=== PATIENT | female | born 1990 | race Caucasian/White ===

== ENCOUNTER 2021-12-16 10:56 | Outpatient (CLI) | payer MEDICAID, SELFPAY | END 2021-12-16 10:57 | disposition home or self-care (01) | LOC: NFLDREF 11:01 | PROVIDERS: Visit Provider Registered Nurse | DX: Z34.90 Encounter for supervision of normal pregnancy, unspecified, unspecified trimester (principal) | CPT/HCPCS: 87086 ==

== ENCOUNTER 2021-12-20 11:51 | Outpatient (CLI) | payer MEDICAID, SELFPAY ==
--- NOTE | 2021-12-20 12:15 | CRLHL7_ITS ---
For Patients: As a result of the Century Cures Act, medical imaging exams and procedure reports are released immediately into your electronic medical record. You may view this report before your referring provider. If you have questions, please contact your health care provider. INDICATION: Evaluate anatomy. COMPARISON: none TECHNIQUE: Real time mena scale imaging of the fetus was performed as well as color Doppler analysis of the umbilical vessels. FINDINGS: Sonographic imaging demonstrates a single living intrauterine gestation. Fetus demonstrates a regular cardiac rate of 154 beats per minute. Fetus has a vertex position. The placenta lies anteriorly without evidence of placenta previa. The edge of the placenta is located 5.9 cm from the internal cervical os. Amniotic fluid volume appears normal. Single deepest vertical pocket: 5.3 cm. The cervix is closed and measures 3.9 cm in length. The composite ultrasound gestational age is calculated at 19 weeks 6 days with an estimated sonographic due date of 05/10/2022. The estimated weight is 320 grams which lies at the 73rd %. The following biometric measurements were obtained: Biparietal diameter: 4.5 cm/19 weeks 4 days 54th% Head circumference: 16.8 cm/19 weeks 3 days 44th% Abdominal circumference: 15.3 cm/20 weeks 3 days 78th% Femur length: 3.0 cm/19 weeks 3 days 40th% The HC/AC ratio measures: 1.10 range (1.08-1.26) On anatomic survey, there is a normal appearance of the cerebral ventricles, cavum septi pellucidi, cisterna magna and cerebellum. The nose, lips, and facial profile appear normal. The cervical, thoracic and lumbar spine are well visualized and appear normal. The heart views are difficult to obtain due to body habitus. The diaphragm and stomach appear normal. The kidneys and bladder also appear normal. There is a normal three-vessel cord and cord insertion site. The four extremities appear normal. IMPRESSION: Incomplete evaluation of the four-chamber heart and outflow tracts. Remainder of the survey is normal. Follow-up recommended. Sonographic gestational age 19 weeks 6 days and sonographic due date 05/10/2022. Good correlation with dates. Estimated weight 73rd percentile. Abdominal circumference 78th percentile. Dictated by Radhames Pittman MD @ 12/20/2021 2:41:56 PM (Electronically Signed)
== END 2021-12-20 11:52 | disposition home or self-care (01) ==
LOC: US 11:52
PROVIDERS: Visit Provider Registered Nurse
DX: Z34.92 Encounter for supervision of normal pregnancy, unspecified, second trimester (principal); O36.8320 Maternal care for abnormalities of the fetal heart rate or rhythm, second trimester, not applicable or unspecified; Z3A.19 19 weeks gestation of pregnancy
CPT/HCPCS: 76805

== ENCOUNTER 2021-12-28 10:30 | Outpatient (CLI) | payer MEDICAID, SELFPAY ==
[2021-12-28 08:16] LABS: Glucose Fasting Check 97 mg/dl (60-115)
[2021-12-28 13:29] LABS: Glucose GTT-Gestational 3 Hr 138 mg/dl (70-140)
[2021-12-28 13:32] LABS: Glucose 1 Hour Gest 172 mg/dl (70-180)
== END 2021-12-28 10:31 | disposition home or self-care (01) ==
PROVIDERS: Visit Provider Registered Nurse
DX: Z34.92 Encounter for supervision of normal pregnancy, unspecified, second trimester (principal); Z3A.21 21 weeks gestation of pregnancy
CPT/HCPCS: 82951; 82952

== ENCOUNTER 2022-01-04 11:55 | Outpatient (CLI) | payer MEDICAID, SELFPAY ==
--- NOTE | 2022-01-04 12:30 | CRLHL7_ITS ---
For Patients: As a result of the Century Cures Act, medical imaging exams and procedure reports are released immediately into your electronic medical record. You may view this report before your referring provider. If you have questions, please contact your health care provider. INDICATION: Follow-up heart views. COMPARISON: Ob ultrasound 12/20/2021. TECHNIQUE: Real time mena scale imaging of the fetus was performed. FINDINGS: Sonographic imaging demonstrates a single living intrauterine gestation. The fetus has a regular cardiac rate of 155 beats per minute. The fetus has a cephalic orientation. The placenta lies anteriorly. Amniotic fluid volume appears normal with single deepest pocket measuring 6.0 cm. Normal appearance of the four-chamber heart and left and right ventricular outflow tracts. IMPRESSION: 1. Single living intrauterine gestation in cephalic position with heart rate 155 beats per minute. 2. Normal appearance of the four-chamber heart and left and right ventricular outflow tracts. Dictated by Maine Tuttle MD @ 01/05/2022 2:43:33 AM (Electronically Signed)
== END 2022-01-04 11:56 | disposition home or self-care (01) ==
LOC: US 11:56
PROVIDERS: Visit Provider Registered Nurse
DX: O36.8390 Maternal care for abnormalities of the fetal heart rate or rhythm, unspecified trimester, not applicable or unspecified (principal)
CPT/HCPCS: 76816

== ENCOUNTER 2022-02-17 08:35 | Outpatient (CLI) | payer MEDICAID, SELFPAY ==
[2022-02-17 08:44] LABS: Glucose Fasting Check 84 mg/dl (60-115)
[2022-02-17 12:30] LABS: Glucose 1 Hour Gest 211 mg/dl (70-180)
[2022-02-17 12:30] LABS: Glucose GTT-Gestational 3 Hr 112 mg/dl (70-140)
[2022-02-18 20:26] LABS: Rapid Plasma Reagin (RPR) Non Reactive (Non Reactive)
== END 2022-02-17 08:36 | disposition home or self-care (01) ==
PROVIDERS: Physician Assistant; Visit Provider Obstetrics & Gynecology
DX: Z34.92 Encounter for supervision of normal pregnancy, unspecified, second trimester (principal); Z3A.27 27 weeks gestation of pregnancy
CPT/HCPCS: 82951; 82952; 86592

== ENCOUNTER 2022-03-02 15:57 | Outpatient (CLI) | payer MEDICAID, SELFPAY ==
[2022-03-02 16:08] VITALS: PULSE 124; O2SAT 89
[2022-03-02 16:09] VITALS: PULSE 97; O2SAT 100
[2022-03-02 16:13] VITALS: BP 135/78; PULSE 96
[2022-03-02 16:15] VITALS: TEMP 37.6
[2022-03-02 16:59] LABS: Amnisure Rom* Negative
== END 2022-03-02 17:20 | disposition home or self-care (01) ==
LOC: OB OUT 15:57 → OB 15:58
PROVIDERS: Visit Provider Obstetrics & Gynecology
DX: Z34.93 Encounter for supervision of normal pregnancy, unspecified, third trimester (principal); Z3A.29 29 weeks gestation of pregnancy
CPT/HCPCS: 59025; 84112; 99213

== ENCOUNTER 2022-03-24 10:56 | Outpatient (CLI) | payer MEDICAID, SELFPAY ==
[2022-03-24 11:47] LABS: Alanine Aminotransferase* 25 U/L (4-35); Aspartate Amino Transferase* 39 U/L (12-35); Blood Urea Nitrogen* 6 mg/dL (5-24); Creatinine* 0.6 mg/dL (0.5-1.5); Estimated Glomerular Filt Rate 122 ml/min; Total Protein Urine 17 mg/dL
[2022-03-24 11:48] LABS: Creatinine Urine 51.7 mg/dL
[2022-03-24 20:21] LABS: Basophils Absolute Auto 0.05 K/uL (0.00-0.30); Basophils Percent Auto 0.7 % (0.0-3.0); Eosinophils Percent Auto 1.4 % (0.0-7.0); Hematocrit 39.9 % (33.0-51.0); Hemoglobin* 12.8 gm/dL (12.0-16.0); Immature Granulocytes Abs Auto 0.05 K/uL (0.00-0.30); Immature Granulocytes Pct Auto 0.7 %; Lymphocytes Percent Auto 17.6 % (20-44); Mean Corpuscular HGB Conc 32 gm/dL (32-36); Mean Corpuscular Hemoglobin 27 pg (26-34); Mean Corpuscular Volume 84 fL (80-100); Monocytes Percent Auto 8.3 % (0.0-11.0); Neutrophils Absolute Auto 5.01 K/uL (1.7-7.0); Neutrophils Percent Auto 71.3 % (42.0-72.0); Platelet Count* 228 K/uL (140-440); RDW Coefficient of Variation % 15.7 % (11.5-15.5); Red Blood Count 4.76 m/uL (4.00-5.20); White Blood Count* 7.03 K/uL (4.50-11.00)
[2022-03-24 20:25] LABS: Slide Review Reflex No
== END 2022-03-24 10:57 | disposition home or self-care (01) ==
PROVIDERS: Visit Provider Obstetrics & Gynecology
DX: O16.2 Unspecified maternal hypertension, second trimester (principal); Z3A.32 32 weeks gestation of pregnancy
CPT/HCPCS: 82565; 82570; 84156; 84450; 84460; 84520; 85025

== ENCOUNTER 2022-03-27 16:33 | Outpatient (CLI) | payer MEDICAID, SELFPAY ==
--- NOTE | 2022-03-27 17:00 | CRLHL7_ITS ---
For Patients: As a result of the Cures Act, medical imaging exams and procedure reports are released immediately into your electronic medical record. You may view this report before your referring provider. If you have questions, please contact your health care provider. INDICATION: Measuring large for dates. COMPARISON: OB ultrasound 01/04/2022 and 12/20/2021. TECHNIQUE: Ultrasound OB pelvis with real time mena scale imaging of the fetus. FINDINGS: Sonographic imaging demonstrates a single living intrauterine gestation. The fetus has a regular cardiac rate of 154 beats per minute. The fetus has a cephalic orientation. The placenta lies anteriorly without evidence of placenta previa. Amniotic fluid volume appears normal with single deepest pocket measuring 5.1 cm. The composite ultrasound gestational age is calculated at 34 weeks 1 day with an estimated sonographic due date of 05/07/2022. The estimated weight is 2418 grams which lies at the 76th percentile. The following biometric measurements were obtained: Biparietal diameter: 8.45 cm (34 weeks 0 days) (67th percentile) Head circumference: 31.37 cm (35 weeks 1 day) (63rd percentile) Abdominal circumference: 31.52 cm (35 weeks 3 days) (96th percentile) Femur length: 6.19 cm (32 weeks 1 day) (13th percentile) The HC/AC ratio measures: 1.00 (range 0.94-1.11) IMPRESSION: 1. Single living intrauterine gestation in cephalic position with heart rate 154 beats per minute. 2. Ultrasound gestational age 34 weeks 1 day with sonographic due date 05/07/2022. The clinical gestational age is 33 weeks 2 days. 3. Estimated weight at the 76th percentile. Abdominal circumference is 96th percentile. Dictated by Maine Tuttle MD @ 03/27/2022 10:46:29 PM (Electronically Signed)
== END 2022-03-27 16:34 | disposition home or self-care (01) ==
LOC: US 16:33
PROVIDERS: Visit Provider Obstetrics & Gynecology
DX: O36.63X0 Maternal care for excessive fetal growth, third trimester, not applicable or unspecified (principal); Z3A.34 34 weeks gestation of pregnancy
CPT/HCPCS: 76816

== ENCOUNTER 2022-04-14 14:26 | Outpatient (CLI) | payer MEDICAID, SELFPAY ==
[2022-04-15 16:36] LABS: Strep B DNA Probe NEGATIVE (Negative)
[2022-04-15 17:06] LABS: Strep B Pen/Amox Allergy No
== END 2022-04-14 14:27 | disposition home or self-care (01) ==
LOC: NFLDREF 14:28
PROVIDERS: Visit Provider Obstetrics & Gynecology
DX: Z34.90 Encounter for supervision of normal pregnancy, unspecified, unspecified trimester (principal)
CPT/HCPCS: 87081; 87653

== ENCOUNTER 2022-05-01 05:00 | Inpatient (IN) | payer MEDICAID, SELFPAY ==
[2022-05-01] VITALS (24 sets, daily range): BP systolic 106–154; BP diastolic 67–100; PULSE 62–80; RESP 16; TEMP 36.2–36.6; O2SAT 91–97; BMI 35.9
[2022-05-01] MEDS: LACTATED RINGERS 1000 ML 1,000 ML 125 ML IV ×5 (05:50→18:11)
[2022-05-01 06:00] LABS: Basophils Absolute Auto 0.05 K/uL (0.00-0.30); Basophils Percent Auto 0.5 % (0.0-3.0); Hematocrit 42.5 % (33.0-51.0); Hemoglobin* 13.8 gm/dL (12.0-16.0); Immature Granulocytes Abs Auto 0.26 K/uL (0.00-0.30); Immature Granulocytes Pct Auto 2.6 %; Lymphocytes Absolute Auto 2.45 K/uL (0.90-2.90); Lymphocytes Percent Auto 24.3 % (20-44); Mean Corpuscular HGB Conc 33 gm/dL (32-36); Mean Corpuscular Hemoglobin 27 pg (26-34); Mean Corpuscular Volume 83 fL (80-100); Monocytes Percent Auto 7.1 % (0.0-11.0); Neutrophils Absolute Auto 6.52 K/uL (1.7-7.0); Neutrophils Percent Auto 64.5 % (42.0-72.0); Platelet Count* 195 K/uL (140-440); RDW Coefficient of Variation % 16.1 % (11.5-15.5); Red Blood Count 5.12 m/uL (4.00-5.20)
[2022-05-01 06:15] LABS: Slide Review Reflex No
[2022-05-01 06:41] LABS: SARS PCR* Negative SARS-CoV-2 (Negative)
--- NOTE | 2022-05-01 07:16 | P.LDBA_ITS ---
Subjective History of Present Illness Narrative: Patient is being admitted to Labor and Delivery for repeat with bilateral salpingectomy. She is a 31 year old at 38 2/7 weeks gestation. Repeat with bilateral salpingectomy 05/01/22 = [address] Cota H&P 04/21/22 Dr. Cota Specific Issues/Plans : h/o 3 c-sections (has 3 boys) : [place] LMP 08/06/21? TOD 05/10/22 per records.?Changed to 05/13/22 based on LMP Twin at 5wks, watters at 9wks 1. H/o x3. Planning repeat c/s w/ permanent sterilization. * Federal consent signed at 28 weeks by . H/o abnormal pap and LEEP in .? Nl pap w/ neg HPV 09/14/21 3. Hgb A1C was 5.6 at first OB. Early 1 hr gct: 157.? 3hr gtt: Fasting 91, 1 hour 172,? 2 hours 150, 3 hours 138 * Repeat 3 hour GTT?at 28 weeks:? 87, 211H, 162H, 112 * Gestational diabetes, diet controlled * Nutrition referral . BMI 33.6 on 12/16/21 5. Positive quad screen.? Down's Syndrome 1:230.? Negative cell free DNA testing.? Generally, the risk of aneuploidy with a + quad screen followed by a negative [id number] is 2%.? Referral placed to [facility] 01/09/22:? normal US.? No further testing recommended. 6. Will have transportation issues in winter.? Doesn't like to drive in snow. 7.? Ultrasound for size greater than dates 03/27/22 = 33 weeks:? Cephalic, anterior placenta without previa, SDP 5.1 cm, EFW 76%.? AC 96%, BPD 67%, HC 63%, FL 13%. Her full history and physical was dictated by Dr. Cota on 04/21/22. Please see this for details. OB - H&P: Exam Physical Exam: Vital signs: Temp Pulse Resp BP Pulse Ox 98 F 74 16 134/80 91 05/01/22 05:39 05/01/22 05:42 05/01/22 05:39 05/01/22 05:42 05/01/22 05:42 Narrative: NST reactive, reassuring OB - Problem Based A/P Additional Plan (1) Previous delivery affecting : Problem details: 3 previous cesareans Status: Acute (2) Gestational diabetes mellitus: Status: Acute Plan Repeat with bilateral salpingectomy today
[2022-05-01] MEDS: CEFAZOLIN 2 GM in 0.9 % SODIUM CHLORIDE Mini-bag 100 ML IVPB (07:20)
[2022-05-01] MEDS: KETOROLAC 30 MG/ML inj IVP ×3 (08:14→21:55)
--- NOTE | 2022-05-01 08:16 | W.ANESCHARGE ---
Anesthesia Charges Start Date/Time Anesthesia Start Date: 05/01/22 Anesthesia Start Time: 07:06 Stop Date/Time Anesthesia Stop Date: 05/01/22 Anesthesia Stop Time: 10:47 Summary Emergency: No
[2022-05-01 08:58] LABS: Glucose* 83 mg/dL (60-115)
--- NOTE | 2022-05-01 09:44 | P.GSOP_ITS ---
Operative Note Date of procedure: 05/01/22 Pre-op diagnosis: Status post repeat , concern for ongoing abdominal bleeding Post-op diagnosis: Same Type of Procedure: Intraoperative consultation for abdominal exploration Procedure Description: When I arrived to the OR, the patient was being intubated by Anesthesia. She had a Pfannenstiel incision created already by Dr. Cota. The uterus was extracorporealize. There was a small small amount of blood pooling superior to this. I 1st used a Calle retractor to retract the abdominal wall anteriorly. I then examined the upper abdomen. I did not see any blood pooling in the left or right upper quadrants. I placed a lap sponge in the upper abdomen and did not have any blood soilage on the sponge when it was removed. I removed the omentum from the abdomen and this appeared to be hemostatic. This was placed back in the upper abdomen. I then ran the bowel from the terminal ileum to the ligament Treitz. There was no sign of bowel injury or mesenteric injury. I re-examined the area superior to the uterus and there was no blood pooling there. We then examined the rectus muscles in the Wound and there was no bleeding noted. I placed a sponge in the superior abdomen On top of the bowel. We then retracted the uterus superiorly and there was a small amount of bleeding from a pelvic vessel on the right lateral aspect of the uterus. I grasped this with a DeBakey and Dr. Cota was able to clamp this and ligated with Vicryl suture. I then removed the upper abdominal sponge which again was clean re-examined the upper abdomen. There was no blood pooling in either of the upper quadrants nor along the pericolic gutter on either side. The abdomen, appearing hemostatic was turned back over to Dr. Cota. Indications: The patient is a 31-year-old female who underwent her 4th with Dr. Cota today. the patient was noted to have significant intra-abdominal adhesions particularly from the omentum. Dr. Cota had noticed some bleeding from the upper abdomen which appeared to be coming from the omentum. She performed a pa rtial omentectomy. It seemed as though there was ongoing bleeding and therefore she called me to assist in abdominal exploration and to stop any identified bleeding. Findings: No obvious bleeding noted within the abdomen Other than a bleeding vessel from the right aspect of the uterus which was controlled. There was no blood pooling in the upper abdomen. Anesthesia: GETA Surgeon: Marian Cota MD Co-Surgeon: Steffi Lerner MD Estimated blood loss (mL): 1 Condition: stable Disposition: PACU
[2022-05-01] MEDS: MORPHINE 2 MG/ML inj IVP (13:13)
[2022-05-01] MEDS: ACETAMINOPHEN 1,000 MG/100 ML INJ 1000 MG IVPB (13:18)
--- NOTE | 2022-05-01 14:08 | W.PM.NB ---
Nerve Block Nerve Block Time Seen by Provider: 10:33 Type of block requested by surgeon for post-operative analgesia: TAP Side: bilateral Time out performed: Yes Verification of patient name: Yes Verification of date of : Yes Site marking: site marked Name of person performing procedure: Ramses Continuous monitoring Was continuous monitoring of O2 sat, B/P, bowling or skating front desk clerk, recorded every 15 minutes?: Yes Procedure Checklist: sterile prep, needles and gloves Ultrasound guided. Images saved: Yes Medications given in 5ml increments after negative aspiration: Marcaine %: 0.25 mL: 30 Needle gauge: 20 and Exparel mL: 10 Patient tolerated procedure well: Yes Additional comments: Needle noted adjacent to nerve Block Charges Block Charge (with Pro Fee): TAP Bilateral Use of Ultrasound Machine for Block: Yes- US Guidance/pain block
--- NOTE | 2022-05-01 14:08 | W.ANESCHARGE ---
Anesthesia Charges Start Date/Time Anesthesia Start Date: 05/01/22 Anesthesia Start Time: 07:06 Stop Date/Time Anesthesia Stop Date: 05/01/22 Anesthesia Stop Time: 10:47 Summary Emergency: No
[2022-05-01 14:09] LABS: Basophils Percent Auto 0.1 % (0.0-3.0); Hematocrit 44.1 % (33.0-51.0); Hemoglobin* 14.3 gm/dL (12.0-16.0); Immature Granulocytes Pct Auto 1.7 %; Lymphocytes Percent Auto 8.5 % (20-44); Mean Corpuscular HGB Conc 32 gm/dL (32-36); Mean Corpuscular Hemoglobin 27 pg (26-34); Mean Corpuscular Volume 84 fL (80-100); Monocytes Percent Auto 8.4 % (0.0-11.0); Neutrophils Percent Auto 81.3 % (42.0-72.0); Platelet Count* 178 K/uL (140-440); RDW Coefficient of Variation % 16.3 % (11.5-15.5); Red Blood Count 5.27 m/uL (4.00-5.20); White Blood Count* 20.23 K/uL (4.50-11.00)
[2022-05-01 14:15] LABS: Slide Review Reflex No
--- NOTE | 2022-05-01 16:27 | PM.OBPNCS1 ---
OB - PN: A/P Assessment and Plan (1) History of gestational diabetes: Problem details: Diet controlled in most recent . Status: Acute Assessment and Plan: Check blood sugar tomorrow. (2) Intrapartum hemorrhage, delivered: Problem details: QBL 1140 mL. Status: Acute Assessment and Plan: Hemoglobin actually increased from 1st measurement. Will repeat hemoglobin tomorrow. (3) S/P section: Problem details: Fourth with bilateral salpingectomy, extensive lysis of adhesions and partial omentectomy on 05/01/2022. Status: Acute Assessment and Plan: Showing signs on exam of return of bowel function. Advance diet as tolerated. Plan Also with intermittently elevated blood pressures. Transaminases, BUN, and creatinine are pending. With persistently elevated blood pressures, I will plan to treat with labetalol. Plan day: 0 OB - PN: Subj Subjective Date Seen: 05/01/22 Interval history: Postoperative day 0 Status post repeat with extensive lysis of adhesions and partial omentectomy on 05/01/2022, complicated by estimated blood loss of 1140 mL Narrative: Shanthi on this afternoon, but currently reports no pain. She is resting in bed. She has not yet tried , as she thought it was contraindicated with recent anesthesia. She did vomit once this afternoon, but currently reports no nausea. OB - PN: Obj Exam Physical Exam: Vital signs: Temp Pulse Resp BP Pulse Ox O2 Del Method 97.5 F L 65 16 125/81 96 05/01/22 16:01 05/01/22 16:01 05/01/22 16:01 05/01/22 16:01 05/01/22 16:01 05/01/22 16:01 Narrative: General: Pleasant, no acute distress, appears very sleepy Abdomen: Soft, nontender, fundus well below umbilicus, normoactive bowel sounds in all 4 quadrants, dressing clean, dry, and intact Lower extremities: SCDs in place bilaterally Urinary Catheter Management: Urethral: Cath placed during this visit: yes Urethral indwelling: Yes Reason for continuing: surgical procedure Insertion date: 05/01/22 Insertion time: 07:23 OB - PN: Obj Data Labs Labs: Laboratory Results - last 24 hr 05/01/22 05/01/22 05/01/22 05:15 05:25 05:25 WBC 10.10 RBC 5.12 Hgb 13.8 Hct 42.5 MCV 83 MCH 27 MCHC 33 RDW Coeff of Mely 16.1 H Plt Count 195 Neut % (Auto) 64.5 Lymph % (Auto) 24.3 [place] % (Auto) 7.1 Eos % (Auto) 1.0 Baso % (Auto) 0.5 Neut # (Auto) 6.52 Lymph # (Auto) 2.45 [place] # (Auto) 0.70 Eos # (Auto) 0.10 Baso # (Auto) 0.05 Glucose SARS-CoV-2 (PCR) Negative SARS-CoV-2 Blood Type O Positive Antibody Screen NEGATIVE 05/01/22 05/01/22 05:45 14:00 WBC 20.23 H RBC 5.27 H Hgb 14.3 Hct 44.1 MCV 84 MCH 27 MCHC 32 RDW Coeff of Mely 16.3 H Plt Count 178 Neut % (Auto) 81.3 H Lymph % (Auto) 8.5 L [place] % (Auto) 8.4 Eos % (Auto) 0.0 Baso % (Auto) 0.1 Neut # (Auto) 16.40 H Lymph # (Auto) 1.70 [place] # (Auto) 1.70 H Eos # (Auto) 0.00 Baso # (Auto) 0.00 Glucose 83 SARS-CoV-2 (PCR) Blood Type Antibody Screen
--- NOTE | 2022-05-01 16:32 | PM.OBPRCCS ---
Procedure Pre-op/Post-op diagnoses: Pre-Op/Post-Op Diagnoses Operation Date: 05/01/22 07:00 <No data on this case meets the specified criteria> Procedure Done: Global Procedure Details: Procedures Operation Date: 05/01/22 07:00 Actual Procedure Side Surgeon p Repeat Section w/Tubal Ligation, lysis of adhesions, partial omentectomy Marian Cota MD Narrative: PREOPERATIVE DIAGNOSIS: Thirty-eight weeks, 2 days gestation Three previous deliveries Undesired fertility POSTOPERATIVE DIAGNOSIS: 38 weeks, 2 days gestation Three previous deliveries Undesired fertility Extensive omental adhesions PROCEDURE: Repeat low-transverse section Bilateral salpingectomy Extensive lysis of adhesions Partial omentectomy SURGEON: Marian Cota MD ANESTHESIA: Spinal, then general INTRAOPERATIVE CONSULT: Steffi Lerner MD IV FLUIDS: 4100 mL crystalloid QBL: 1140 mL mL Urine output: Approximately 1 L FINDINGS: 1. Female , cephalic presentation, Apgars of 9 and 9, weight 7 lb, 15 oz 2. Dense omental adhesions to the fundus and anterior abdominal wall, with persistent bleeding after disruption of adhesions requiring removal of part of omentum. Scarring along the bladder reflection inferiorly. Otherwise normal appearance to uterus, bilateral tubes and ovaries. COMPLICATIONS: Intrapartum hemorrhage, related to bleeding from adhesions and left tubal pedicle. PROCEDURE IN DETAIL: Patient was taken to the operating room with IV running. She received cefazolin in preoperative prophylaxis. Spinal anesthesia had previously been administered. Fitzgerald catheter was inserted. She was prepped and draped in the usual sterile fashion. Anesthesia was tested and found to be adequate. A low-transverse skin incision was made with a scalpel and carried through to the underlying layer of fascia with the scalpel. The subcutaneous fat was dissected off the underlying fascia with Bovie. The fascia was nicked in the midline with a scalpel, and this incision was extended laterally with scissors. The rectus muscles were in the midline. Peritoneum was identified and entered bluntly. Scissors were used to widen this opening laterally. Palpation of the uterus intra-abdominally revealed extensive omental adhesions. No intra-abdominal retractor was placed because of this. The bladder reflection was found to be advanced along the lower uterine segment. A bladder flap was created with a combination of sharp and blunt dissection. Low-transverse uterine incision was made with a scalpel. Incision was widened bluntly. The infant's head was grasped through the hysterotomy and delivered with the help of fundal pressure. The remainder of the body delivered without incident. Cord was clamped and cut after 30 seconds. Infant was handed off to attending nurses. The placental disc did not deliver with gentle traction on the cord, and the disc began to fracture. Therefore, the disc was grasped and delivered manually. The uterus was cleaned of all clots and debris with the dry lap pad. The hysterotomy was reapproximated with 0 Vicryl in a running, locked fashion. Over the remainder of the procedure, several [id number] sutures were used in imbricating fashion along the hysterotomy to obtain hemostasis. There were also some bleeding vessels noted along the bladder reflection that were addressed with either small amounts of cautery or [id number] sutures with 4-0 Vicryl. Omental adhesions to the anterior fundus were then divided with a combination of electrocautery and by cross-clamping, cutting, and tying. This was done to obtain access to the tubes. The uterus was exteriorized. The left tube was grasped in its mid isthmic portion with a [place] clamp. The LigaSure exact device was used to divide the left tube at the cornua, and dissection was carried medially to laterally through the mesosalpinx, ultimately dividing the blood supply and removing the left tube from the patient. Initially, hemostasis was noted of the pedicles. Attention was then turned to the right fallopian tube, which was similarly grasped in the mid isthmic portion. The tube was divided from the mesosalpinx moving laterally to medially, and was ultimately amputated at the right uterine cornua. Again, hemostasis was initially noted. However, when the uterus was returned to the abdomen thereafter, the left tubal pedicle began bleeding profusely, and the pedicle was again sealed with the LigaSure exact device. There was persistent bleeding from the omentum noted for sometime thereafter. To gain better visualization and access to the upper abdomen, and to fully explore for bleeding, the omental adhesions to the anterior abdominal wall were also divided with a combination of electrocautery and by cross-clamping, cutting, and suture ligating. This revealed of bloody edge along the left peritoneum, and this was addressed with a running stitch of 2 0 Vicryl. The omentum was examined several times, and bleeding vessels were initially addressed by suture ligation. However, with return of the omentum to the abdomen, recurrent bleeding was always noted. The inferior-most edge of the omentum, proximally 3-4 cm, was ragged and bloody throughout, and there were multiple defects within the omentum related to the adhesions. Ultimately, I opted to remove the distal most 4 cm of the omentum with the LigaSure Impact device. After this, hemostasis of the omentum was noted. Dr. Agustin was called to the operating room to assist in examination of the upper abdomen in rule out any further bleeding. She confirm hemostasis of the omentum and the length of the bowel was run, revealing no injury or bleeding. Ultimately, the omentum was returned to the abdomen as was the uterus. Just before closure of the peritoneum, the bladder reflection and hysterotomy were confirmed to be hemostatic. Greyson hemostatic agent was placed above the hysterotomy. The peritoneum was closed in a running fashion with 2-0 Vicryl. The fascia was closed in a running fashion with 0 Vicryl, after assuring hemostasis of the underlying rectus muscles and addressing any oozing vessels with electrocautery. Subcutaneous fat was irrigated and Bovie used on oozing vessels. The subcutaneous fat was reapproximated with 2 0 plain gut suture in an interrupted fashion. The skin was closed with a subcuticular stitch of 4-0 Monocryl. Surgical glue was applied above this. Patient tolerated procedure with difficulty as time went on, and she was ultimately given general anesthesia to aid in exploration of the upper abdomen. She was taken to recovery area in stable condition. [place] Infant total score - 1 minute: 9 total score - 5 minute: 9
[2022-05-01 16:45] LABS: Creatinine* 0.8 mg/dL (0.5-1.5); Est. Creatinine Clearance* 76.18; Estimated Glomerular Filt Rate 100 ml/min
[2022-05-01 16:46] LABS: Alanine Aminotransferase* 40 U/L (4-35); Aspartate Amino Transferase* 67 U/L (12-35); Blood Urea Nitrogen* 14 mg/dL (5-24)
[2022-05-01] MEDS: ONDANSETRON 2 MG/ML inj 4 MG IVP (17:12)
[2022-05-01] MEDS: ACETAMINOPHEN 500 MG TABLET 1000 MG PO (19:30)
[2022-05-01] MEDS: SIMETHICONE 80 MG TAB.CHEW PO (22:48)
[2022-05-01] MEDS: LACTATED RINGERS 1000 ML 1,000 ML IV (22:50)
[2022-05-01 22:54] LABS: Hematocrit 37.9 % (33.0-51.0); Hemoglobin* 12.1 gm/dL (12.0-16.0); Mean Corpuscular HGB Conc 32 gm/dL (32-36); Mean Corpuscular Hemoglobin 27 pg (26-34); Mean Corpuscular Volume 84 fL (80-100); Platelet Count* 153 K/uL (140-440); Red Blood Count 4.49 m/uL (4.00-5.20); White Blood Count* 19.08 K/uL (4.50-11.00)
[2022-05-01 23:03] LABS: Slide Review Reflex No
[2022-05-01 23:21] LABS: Alanine Aminotransferase* 36 U/L (4-35); Aspartate Amino Transferase* 63 U/L (12-35); Blood Urea Nitrogen* 15 mg/dL (5-24); Creatinine* 0.9 mg/dL (0.5-1.5); Est. Creatinine Clearance* 67.72; Estimated Glomerular Filt Rate 87 ml/min
[2022-05-02 00:09] VITALS: BP 124/79; PULSE 67; RESP 16; TEMP 36.6; O2SAT 96
[2022-05-02] MEDS: KETOROLAC 30 MG/ML inj IVP ×3 (03:32→15:50)
[2022-05-02] MEDS: LACTATED RINGERS 1000 ML 1,000 ML 125 ML IV (03:38)
[2022-05-02 03:53] VITALS: BP 112/69; PULSE 73; RESP 16; TEMP 36.8; O2SAT 94
--- NOTE | 2022-05-02 07:40 | PM.OBPNCS1 ---
OB - PN: A/P Assessment and Plan (1) care and examination immediately after delivery: Status: Acute (2) History of gestational diabetes: Problem details: Diet controlled in most recent . Status: Acute (3) Intrapartum hemorrhage, delivered: Problem details: QBL 1140 mL. Status: Acute (4) S/P section: Problem details: Fourth with bilateral salpingectomy, extensive lysis of adhesions and partial omentectomy on 05/01/2022. Status: Acute OB - PN: Subj Subjective Date Seen: 05/02/22 Patient comments: incisional pain [place] status: bottle and doing well [place] feeding status: exclusively bottle feeding (Mom may plan to initiate ) Narrative: Shanthi is a G [id number] postoperative day 1, status post repeat with extensive lysis of adhesions and partial omentectomy on 05/01/2022, complicated by estimated blood loss of 1140 mL. The patient feels ok but starting to notice more pain this morning.? The pain has been well controlled with current medications.? She has no new complaints.? Urinary output is adequate and she still has a catheter in place.? Has a good appetite, is tolerating a general diet, is passing flatus, and has not yet had a bowel movement.? Has scant amount of rubra lochia.? She is ambulating well. She is not currently but states she may try when feeling better/recovered.? OB - PN: Obj Exam Physical Exam: Vital signs: Temp Pulse Resp BP Pulse Ox O2 Del Method 98.3 F 73 16 112/69 94 05/02/22 03:53 05/02/22 03:53 05/02/22 03:53 05/02/22 03:53 05/02/22 03:53 05/02/22 03:53 Constitutional: Constitutional: no acute distress and cooperative Routine Respiratory Exam: Respiratory: Present CTA bilaterally Routine Cardiovascular Exam: Cardiovascular: Present RRR Routine Abdominal Exam: Abdominal: Present soft Fundus: Present firm Routine Exam: Comments: Mild edema present. Routine Extremities Exam: Extremities: Present full ROM and normal inspection Routine Psychiatric Exam: Psychiatric: Present normal affect and cooperative Wound Management: Method: adhesive (glue) Drains: none Examination: Present dressed, clean, dry and intact Comments: Lower abdominal incision: dressin in place Urinary Catheter Management: Urethral: Cath placed during this visit: yes Urethral indwelling: Yes Reason for continuing: other continuation reason Insertion date: 05/01/22 Insertion time: 07:23 OB - PN: Obj Data Labs Labs: Laboratory Results - last 24 hr 05/01/22 05/01/22 05/01/22 05:45 14:00 16:24 WBC 20.23 H RBC 5.27 H Hgb 14.3 Hct 44.1 MCV 84 MCH 27 MCHC 32 RDW Coeff of Mely 16.3 H Plt Count 178 Neut % (Auto) 81.3 H Lymph % (Auto) 8.5 L [place] % (Auto) 8.4 Eos % (Auto) 0.0 Baso % (Auto) 0.1 Neut # (Auto) 16.40 H Lymph # (Auto) 1.70 [place] # (Auto) 1.70 H Eos # (Auto) 0.00 Baso # (Auto) 0.00 BUN 14 Creatinine 0.8 Estimated Creat Clear 76.18 Estimated GFR 100 Glucose 83 AST 67 H ALT 40 H 05/01/22 05/01/22 22:48 22:48 WBC 19.08 H RBC 4.49 Hgb 12.1 Hct 37.9 MCV 84 MCH 27 MCHC 32 RDW Coeff of Mely Plt Count 153 Neut % (Auto) Lymph % (Auto) [place] % (Auto) Eos % (Auto) Baso % (Auto) Neut # (Auto) Lymph # (Auto) [place] # (Auto) Eos # (Auto) Baso # (Auto) BUN 15 Creatinine 0.9 Estimated Creat Clear 67.72 Estimated GFR 87 Glucose AST 63 H ALT 36 H
[2022-05-02 07:45] VITALS: BP 134/84; PULSE 78; RESP 18; TEMP 36.9; O2SAT 95
[2022-05-02] MEDS: FERROUS SULFATE 325 MG TABLET PO (09:05)
[2022-05-02] MEDS: DOCUSATE SODIUM 100 MG CAPSULE PO (09:05)
[2022-05-02] MEDS: SIMETHICONE 80 MG TAB.CHEW PO ×3 (10:19→18:36)
[2022-05-02 12:30] VITALS: BP 123/81; PULSE 77; RESP 18; TEMP 37.2; O2SAT 95
[2022-05-02] MEDS: ACETAMINOPHEN 500 MG TABLET 1000 MG PO ×2 (12:39→18:36)
[2022-05-02] MEDS: OXYCODONE 5 MG TABLET PO (14:12)
[2022-05-02] MEDS: SODIUM CHLORIDE 0.9 % (FLUSH) 10 ML SYRINGE IVF (15:50)
[2022-05-02 17:00] VITALS: BP 119/74; PULSE 78; RESP 16; TEMP 36.9; O2SAT 94
[2022-05-02 19:50] VITALS: BP 119/77; PULSE 84; RESP 20; TEMP 36.8; O2SAT 96
[2022-05-02] MEDS: IBUPROFEN 600 MG TABLET PO (21:28)
[2022-05-03] MEDS: ACETAMINOPHEN 500 MG TABLET 1000 MG PO ×4 (00:06→18:43)
[2022-05-03 00:07] VITALS: BP 122/82; PULSE 88; RESP 18; TEMP 36.7; O2SAT 95
[2022-05-03] MEDS: IBUPROFEN 600 MG TABLET PO ×4 (03:30→21:14)
[2022-05-03 03:33] VITALS: BP 123/61; PULSE 79; RESP 16; TEMP 36.7; O2SAT 97
[2022-05-03 08:40] VITALS: BP 130/77; PULSE 70; RESP 18; TEMP 36.7; O2SAT 96
[2022-05-03] MEDS: SIMETHICONE 80 MG TAB.CHEW PO ×3 (08:49→19:56)
[2022-05-03] MEDS: OXYCODONE 5 MG TABLET PO ×3 (09:31→23:36)
[2022-05-03] MEDS: DOCUSATE SODIUM 100 MG CAPSULE PO (09:32)
[2022-05-03] MEDS: FERROUS SULFATE 325 MG TABLET PO (09:33)
[2022-05-03 11:40] VITALS: BP 125/82; PULSE 68; RESP 18; TEMP 36.9; O2SAT 96
--- NOTE | 2022-05-03 15:36 | P.OBPN_ITS ---
OB - PN: A/P Assessment and Plan (1) S/P section: Problem details: Fourth with bilateral salpingectomy, extensive lysis of adhesions and partial omentectomy on 05/01/2022. Status: Acute (2) History of gestational diabetes: Problem details: Diet controlled in most recent . Status: Inactive (3) Intrapartum hemorrhage, delivered: Problem details: QBL 1140 mL. Status: Acute (4) Mild preeclampsia: Status: Acute (5) state: Status: Acute Plan day: 2 Plan: routine postop care Comments: Assessment/Plan 31 yo status post repeat complicated extensive lysis of adhesions and partial omentectomy on 05/01/2022, complicated by estimated blood loss of 1140 mL. Lactating Mother Pre-eclampsia with out severe features GDM 1. ?Continue routine PP cares 2. ?. ?May see if desired 3. ?Anticipate discharge home tomorrow OB - PN: Subj Subjective Time Seen by Provider: 08:00 Date Seen: 05/03/22 Interval history: Subjective: Shanthi is a 31 y.o. who is Postoperative day 1 Status post repeat with extensive lysis of adhesions and partial omentectomy on 05/01/2022, complicated by estimated blood loss of 1140 mL. The patient feels well. ?The pain is well controlled with current medications. ?She has no new complaints. ?She is breast feeding and reports things are going well, but she is concerened that there is no milk - reassurance given that her milk may be delayed a bit due to surgery, but continuing to offer the breast, frequent feedings, and skin to skin should help encourage milk production.? the patient has done well.? Vitals have been stable.? She has remained afebrile.? Has a good appetite, is tolerating a general diet. ?She is voiding without difficulty.? She is passing gas and has had a bowel movement.? She is ambulating and denies any dizziness or headaches.? Has Small amount of light rubra lochia.??Communication facilitated by Lao second language tutor via ipad. Patient comments: no complaints, pain well controlled, tolerating diet and flatus present [place] status: and doing well [place] feeding status: exclusively OB - PN: Obj Exam Physical Exam: Vital signs: Temp Pulse Resp BP Pulse Ox O2 Del Method 98.1 F 70 18 130/77 96 05/03/22 08:40 05/03/22 08:40 05/03/22 08:40 05/03/22 08:40 05/03/22 08:40 05/03/22 08:40 Narrative: Objective: VSS. ?Afebrile Blood sugar: 67 GENERAL APPEARANCE: ?normal affect, alert, no distress, tired MOOD: ?appropriate HEENT: normocephalic, neck supple, full ROM CHEST: ?Symmetrical chest wall movement. ?Normal respiratory effort. ?Clear to auscultation HEART: ?regular rate and rhythm ABDOMEN: ?soft, non-tender. Uterine fundus is firm, at Umbilicus, Midline and is appropriate for the stage of recovery. ?Bowel sounds present. EXTREMITIES: ?normal and minimal edema SKIN: warm, dry. ?Dressing on, clean/dry/intact. ?No signs of infection noted. Urinary Catheter Management: Urethral: Cath placed during this visit: yes, but has since been removed by the nurse Urethral indwelling: Yes Reason for continuing: decision to DC catheter Insertion date: 05/01/22 Insertion time: 07: Removal date: 05/02/22 Removal time: 08:00
[2022-05-03 16:10] VITALS: BP 140/83; PULSE 60; RESP 18; TEMP 36.7; O2SAT 97
[2022-05-03 19:37] VITALS: BP 128/85; PULSE 70; RESP 18; TEMP 36.4; O2SAT 98
[2022-05-04 04:10] VITALS: BP 117/82; PULSE 67; RESP 18; TEMP 36.6; O2SAT 98
[2022-05-04] MEDS: ACETAMINOPHEN 500 MG TABLET 1000 MG PO (04:23)
[2022-05-04] MEDS: OXYCODONE 5 MG TABLET PO ×2 (04:24→08:44)
[2022-05-04] MEDS: FERROUS SULFATE 325 MG TABLET PO (08:44)
[2022-05-04] MEDS: DOCUSATE SODIUM 100 MG CAPSULE PO (08:45)
[2022-05-04] MEDS: IBUPROFEN 600 MG TABLET PO (08:45)
[2022-05-04 08:52] VITALS: BP 125/83; PULSE 62; RESP 18; TEMP 36.6; O2SAT 98
--- NOTE | 2022-05-04 09:39 | P.DS_ITS ---
DS: Providers Provider Time Seen by Provider: 07:45 Date Seen: 05/04/22 Date of admission: 05/01/22 05:00 Primary care physician: Not a Local Provider Admitting Clinician: Marian Cota MD Attending Physician on discharge: Iva Loo CNM w/ Larisa Diallo CNM Date of Discharge: 05/04/22 DS: Diagnosis Discharge Diagnosis (1) care and examination immediately after delivery: Status: Acute (2) Mild preeclampsia: Status: Acute (3) S/P section: Status: Acute Problem details: Fourth with bilateral salpingectomy, extensive lysis of adhesions and partial omentectomy on 05/01/2022. (4) Lactating mother: Status: Acute Exam Const: Vital Signs, click to edit/add: Vital Signs - 24 hr 05/03/22 11:40 05/03/22 16:10 05/03/22 19:37 Temperature 98.4 F 98.1 F 97.6 F Pulse Rate [Pulse Oximeter] 68 60 70 Respiratory Rate 18 18 18 Blood Pressure [Ri ght Arm] 125/82 140/83 H 128/85 Pulse Oximetry 96 97 98 Oxygen Delivery Me thod Room Air Room Air Room Air 05/04/22 04:10 05/04/22 08:52 Temperature 98 F 98 F Pulse Rate [Pulse Oximeter] 67 62 Respiratory Rate 18 18 Blood Pressure [Ri ght Arm] 117/82 125/83 Pulse Oximetry 98 98 Oxygen Delivery Me thod Room Air Room Air Documenting provider has reviewed patient's vital signs: yes Common normals: no apparent distress, oriented x3, healthy appearing and alert HENMT: Common normals: normocephalic Head and scalp: normocephalic Eye: Common normals: PERRL Pupil: PERRL Neck & C-Spine: Common normals: full ROM and supple Chest: Common normals: inspection of chest normal Resp: Common normals: normal respiratory effort and clear to auscultation bilaterally Auscultation: clear to auscultation bilaterally Cardio: Common normals: regular rate and regular rhythm Rate: regular rate Rhythm: regular rhythm GI: Common normals: soft to palpation Inspection: incision (Lower abdominal transverse, well approximated, glue present) Inspection of incision: healing well Palpation: soft : Uterus: U/1 Lochia: scant Back & Pelvis: Common normals: thoracic and lumbar spine normal to inspection Extremity: Common normals: normal to inspection and full ROM Neuro: Common normals: oriented x3 Sensorium/orientation: alert Speech: speech normal Psych: Common normals: mental status grossly normal, thought process normal, speech normal and activity/motor behavior normal Speech: normal speech Thought process: normal thought process Skin: Common normals: no rashes or lesions noted General skin exam: no rashes or lesions noted OB - DS: Summary Hospital Course Hospital Course: The patient is a 31 year old at 38 5/7 weeks gestation that was admitted to the [facility] on 05/01/22 for repeat c/s. She had an complicated delivery by extensive lysis of adhesions and partial omentectomy with intrapartum hemorrhage. Hgb has been stable. She delivered a viable female infant. The patient feels well.? The pain is well controlled with current medications.? She has no new complaints.? Urinary output is adequate and she is voiding without difficulty.? Has a good appetite, is tolerating a general diet, is passing flatus, and has had a bowel movement.? Has scant amount of rubra lochia.? She is ambulating well. She is and reports it is going well.? Peripartum Data Procedures: Procedures Operation Date: 05/01/22 07:00 Actual Procedure Side Surgeon p Repeat Section w/Tubal Ligation, lysis of adhesions, partial omentectomy Marian Cota MD complications: none Gender: Female Discharge Plan: Home Status at Discharge Functional status at discharge: independent ambulation Overall status at discharge: patient is progressing back to baseline Time Spent with Patient Time attestation: Total time spent providing and/or coordinating discharge services: Time spent: Less than 30 minutes Discharge Plan Discharge Disposition: Home, Self-Care Date of Admission: 05/01/22 05:00 Attending Provider on Discharge: Iva Loo Primary Care Provider: Provider,Not a Local Condition: Stable Anticipated Discharge Date/Time: 05/04/22 12:30 Discharge Medications: New docusate sodium 100 mg Capsule 100 mg PO BID PRN (Reason: constipation) Qty: 100 0RF ibuprofen 600 mg Tablet 600 mg PO Q6H PRN (Reason: Pain) Qty: 30 0RF oxycodone 5 mg Tablet 5 mg PO 3XD PRN (Reason: Pain) Qty: 21 0RF acetaminophen 500 mg Tablet 1,000 mg PO Q6H PRN (Reason: Pain) Qty: 0 0RF ferrous sulfate 325 mg (65 mg iron) Tablet 325 mg PO DAILYWM Qty: 90 0RF Continued prenat.vits,donna,[id number]-xsted Tablet 1 tab PO QDAY Qty: 30 6RF Discontinued (DME) Test Strips Misc See Rx Instructions .MEDSUPPLY Qty: 100 3RF Rx Instructions: Test blood sugar 4 times daily. (DME) lancets Misc See Rx Instructions .MEDSUPPLY Qty: 100 3RF Rx Instructions: Test blood sugar 4 times daily. (DME) Blood Glucose Meter Misc See Rx Instructions .MEDSUPPLY Qty: 1 0RF Rx Instructions: One meter Discharge Orders: Discharge Order (Routine); Ordered 05/04/22 Ordered By: Iva Loo Patient Education: OB /Bottle Feeding Additional Instructions: Discharge instructions were reviewed with the patient including signs and symptoms of infection and home going medications ACTIVITY RESTRICTIONS Lifting Restriction: MAXIMUM OF 20 pounds for 6 weeks No not submerge incision under water X 2 weeks? Nothing vaginally for 6 weeks: no tampons or intercourse Do not drive while taking narcotic pain medication(s) = oxycodone. 1-2 weeks. NO core, high-intensity or high impact exercise for 6 weeks. Off Work or School for 8 weeks NO RESTRICTION: Walking or walking up/down stairs Showering Symptoms to report to doctor: * Bleeding that saturates more than one pad per hour * Passing clots larger than the size of a golf ball * Pain not relieved by prescribed medication * Fever above 100.4 degrees Fahrenheit * A foul vaginal odor * Difficulty in emotions, mood, and functions * Thoughts of hurting yourself and/or * Painful, reddened area in your breast * Any drainage, redness, or tenderness in your IV/epidural site * Severe headache that doesn't improve after taking medications * Changes in vision, including temporary loss of vision, blurred vision, and/or light sensitivity * Upper abdominal pain (usually under ribs on the right side) * Decrease in urination or painful, frequent urinating * Chest pain * Shortness of breath * Tenderness or pain with redness and/swelling in the calf(s) of your leg Follow [facility] for a BP check?within 1 week of discharge. Call with BP greater than or equal to 160/110 OTHER FOLLOW-UP VISITS: 2-week visit: incision check, discuss feeding concerns, review control options and screen for anxiety/depression. 6-week visit for an annual exam. consultation services are available to all mothers and babies for the first year after delivery.? To make an appointment, please call [phone]. Activity Level: Activity as Tolerated Discharge Diet: Regular Follow Up Appointments: [facility] [Provider Group] (2 weeks and 6 weeks) Forms: [place] Info Instructions
[2022-05-04 10:22] VITALS: BP 141/78; RESP 18; O2SAT 98
[2022-05-04] MEDS: ONDANSETRON ODT 4 MG TAB PO (12:28)
== END 2022-05-04 13:07 | disposition home or self-care (01) | DRG 784 ==
PROVIDERS: Obstetrics & Gynecology; Admitting Provider Obstetrics & Gynecology; Visit Provider Obstetrics & Gynecology
PROC: 10D00Z1 Extraction of Products of Conception, Low, Open Approach (ICD-10-PCS; CPT 59514; principal; 2022-05-01 07:00)
DX: O34.211 Maternal care for low transverse scar from previous cesarean delivery (principal); N99.61 Intraoperative hemorrhage and hematoma of a genitourinary system organ or structure complicating a genitourinary system procedure; O24.420 Gestational diabetes mellitus in childbirth, diet controlled; N73.6 Female pelvic peritoneal adhesions (postinfective); O99.892 Other specified diseases and conditions complicating childbirth; G89.18 Other acute postprocedural pain; O14.04 Mild to moderate pre-eclampsia, complicating childbirth; Z30.2 Encounter for sterilization; Z37.0 Single live birth; Z3A.38 38 weeks gestation of pregnancy
CPT/HCPCS: 01961; 36415; 64488; 76942; 82565; 82947; 84450; 84460; 84520; 85025; 85027; 85384; 85610; 86850; 86900; 86901; 87635; 88302; 88307; T1013; A9270; C9290; J0131; J0330; J0690; J1885; J2250; J2270; J2274; J2370; J2405; J2590; J2704; J3010; J3490; J7120

== ENCOUNTER 2022-06-20 10:10 | Outpatient (CLI) | payer MEDICAID, SELFPAY | END 2022-06-20 10:11 | disposition home or self-care (01) | LOC: NFLDREF 06-22 10:38 | PROVIDERS: PCP Obstetrics & Gynecology; Visit Provider Obstetrics & Gynecology | DX: O24.419 Gestational diabetes mellitus in pregnancy, unspecified control (principal) | CPT/HCPCS: 82947; 82950 ==

== ENCOUNTER 2024-07-29 09:27 | Outpatient (CLI) | payer MEDICAID, SELFPAY | END 2024-07-29 09:28 | disposition home or self-care (01) | LOC: NFLDREF 09:28 | PROVIDERS: Visit Provider Obstetrics & Gynecology | DX: Z86.32 Personal history of gestational diabetes (principal); Z13.6 Encounter for screening for cardiovascular disorders; Z13.1 Encounter for screening for diabetes mellitus | CPT/HCPCS: 80061; 82947; T1013 ==